=== PATIENT | female | born 1950 | race Caucasian/White ===

== ENCOUNTER → 2018-12-20 | Outpatient (CLI) | payer MEDICARE, OTHER ==
[2018-12-24 15:07] LABS: HPV 16 Negative (Negative); HPV 18 Negative (Negative); HPV OTHER HR TYPES Negative (Negative)
== END | disposition home or self-care (01) ==
LOC: LAB 11:51 → LAB SHORT 11:51
PROVIDERS: Obstetrics & Gynecology
DX: Z01.419 Encounter for gynecological examination (general) (routine) without abnormal findings (principal)
CPT/HCPCS: 87624; G0123

== ENCOUNTER → 2020-11-16 | Outpatient (CLI) | payer MEDICARE, OTHER ==
[2020-11-16 17:27] LABS: Alanine Aminotransfer (ALT/SGP 37 U/L (12-78); Albumin, Blood 3.7 g/dL (3.4-5.0); Albumin/Globulin Ratio 1.1 (0.8-1.8); Alk Phos 66 U/L (50-136); Anion Gap 9 mmol/L (6-16); Aspartate Aminotrans (AST/SGOT 16 U/L (12-37); Bilirubin, Total 0.5 mg/dL (0.1-1.0); Blood Urea Nitrogen 10 mg/dL (8-24); Bun/Creatinine Ratio 12.2 (12.0-20.0); CHOL/HDL RATIO 5.9; CO2, Blood 24 mmol/L (21-32); Calcium, Blood 9.6 mg/dL (8.5-10.1); Chloride, Blood 110 mmol/L (98-108); Cholesterol 248 mg/dL (50-200); Creatinine, Blood 0.82 mg/dL (0.40-1.00); Globulin, Blood 3.3 g/dL (2.2-4.0); Glomerular Filtration Rate >60 (60-); Glucose, Blood 95 mg/dL (70-99); HDL Cholesterol 42 mg/dL (>39); LDL/HDL RATIO 3.9; Low Density Lipoprotein Chol 165 mg/dL (0-110); Phosphorus, Blood 3.3 mg/dL (2.5-4.9); Sodium, Blood 143 mmol/L (136-145); Thyroxine (T4) 8.4 ug/dL (4.8-13.9); Triglycerides 206 mg/dL (30-160); Very Low Density Lipoprot Chol 41 mg/dL (6-32)
== END ==
LOC: LAB SHORT 13:51
PROVIDERS: Internal Medicine Hematology & Oncology
DX: E03.9 Hypothyroidism, unspecified (principal); E55.9 Vitamin D deficiency, unspecified; I10 Essential (primary) hypertension
CPT/HCPCS: 80053; 80061; 82306; 84100; 84436; 84443

== ENCOUNTER → 2022-03-02 | Outpatient (CLI) | payer MEDICARE, OTHER ==
[2022-03-03 15:11] LABS: HPV 16 Negative (Negative); HPV 18 Negative (Negative); HPV OTHER HR TYPES Negative (Negative)
== END | disposition home or self-care (01) ==
LOC: LAB SHORT 12:09
PROVIDERS: Obstetrics & Gynecology
DX: Z01.419 Encounter for gynecological examination (general) (routine) without abnormal findings (principal)
CPT/HCPCS: 87624; G0123

== ENCOUNTER → 2025-06-05 | Outpatient (CLI) | payer MEDICARE, OTHER ==
[2025-06-05 12:52] LABS: Stool Occult Bld Immuno 1 Negative (NEGATIVE)
== END | disposition home or self-care (01) ==
LOC: LAB 08:35 → LAB SHORT 08:35 → EDSTATUS 06-03 16:45 → LAB FUT 06-03 16:45
PROVIDERS: Internal Medicine Gastroenterology
DX: Z12.11 Encounter for screening for malignant neoplasm of colon (principal)
CPT/HCPCS: G0328

== ENCOUNTER 2025-08-12 09:27 | Day surgery (SDC) | payer MEDICARE, OTHER ==
[~2025-08-12] VITALS: Ht 161 cm; Wt 74.8 kg
[2025-08-12] VITALS (14 sets, daily range): BP systolic 83–133; BP diastolic 39–87
[~2025-08-12 09:27] MED LIST: CELE100 PO; COLLAGEN SKIN1 EACH PO; FISH OIL 1,0001 EA10 PO; MAGNESIUM SULF100 MG PO; MELATONIN1 M1 PO; MELO7.5 PO; TURMERIC PO
[2025-08-12] MEDS ORDERED: Ropivacaine 0.5% HCl/Pf 123.125 MG,EPINEPHrine HCL 0.25 MG,Ketorolac Tromethamine 15 MG... INFIL SCH (09:45)
[2025-08-12] MEDS ORDERED: Chlorhexidine Mouth Care 15 ML UDC MT SCH (09:45)
[2025-08-12] MEDS ORDERED: Tranexamic Acid 100 ML IV SCH (09:45)
[2025-08-12] MEDS ORDERED: CeFAZolin Sodium 2,000 MG in NS 100 ML IV SCH ×2 (09:45→20:00)
[2025-08-12] MEDS ORDERED: FentaNYL Citrate 50 MCG/ML 2 ML Injection ONE ×2 (10:47→11:24)
[2025-08-12] MEDS ORDERED: Midazolam HCl 1MG / ML 2ML Vial ONE (10:48)
[2025-08-12] MEDS ORDERED: TURMERIC500 M2 PO (10:54)
[2025-08-12] MEDS ORDERED: ZINC50 M3 PO (10:55)
--- NOTE | 2025-08-12 11:41 | NUR ---
History, Chart, Medications and Allergies reviewed before start of procedure. Pre-Op teaching done. Pt verbalizes understanding. Patient confirms NPO status and agrees with scheduled surgery. Patient reports completing Chlorhexadine shower X2 prior to admission to hospital. Surgical site prepped with 2% Chlorhexidine cloth wipe. Lungs clear T/O to Auscultation. Patient States Post-Procedure ride home has been arranged.
[2025-08-12] MEDS ORDERED: ePHEDrine Sulfate 50 MG/ML 1ML Injection ONE (12:43)
[2025-08-12] MEDS ORDERED: HYDROmorphone HCl/Pf 1MG SYR IV PRN ×3 (12:55→13:45)
[2025-08-12] MEDS ORDERED: FentaNYL Citrate 50 MCG/ML 2 ML Injection IV PRN ×2 (12:55)
[2025-08-12] MEDS ORDERED: Ondansetron HCl 2 MG / ML 2ML Vial IV PRN ×2 (12:55→13:35)
[2025-08-12] MEDS ORDERED: Phenylephrine HCl 100 MCG/ML-NS 10MLSYR (1MG/10ML) ONE (13:01)
[2025-08-12] MEDS ORDERED: Metoclopramide HCl 5MG / ML 2ML Vial IV PRN (13:35)
[2025-08-12] MEDS ORDERED: Ondansetron HCl 2 MG / ML 2ML Vial ONE (13:37)
[2025-08-12] MEDS ORDERED: Magnesium Hydroxide Conc 10 ML UDC PO PRN (13:40)
[2025-08-12] MEDS ORDERED: Prochlorperazine Edisylate 10 mg Vial IV PRN (13:45)
[2025-08-12] MEDS ORDERED: FLU VACC TS2025(65UP)/MF59C/PF 45 MCG/0.5 ML SYRINGE IM SCH (13:50)
--- NOTE | 2025-08-12 14:24 | NUR ---
ARRIVAL TO UNIT PT ARRIVED TO UNIT A/OX4. UNABLE TO WIGGLE OR FEEL TOES AT THIS TIME DUE TO SPINAL. PT DENIES N/V. DENIES LIGHTHEADED/DIZZINESS. CALL LIGHT IN REACH. TOLERATING SIPS OF WATER.
[2025-08-12] MEDS ORDERED: Ketorolac Tromethamine 15mg Vial IV SCH (18:00)
[2025-08-12] MEDS ORDERED: ASPI81CH PO (18:08)
--- NOTE | 2025-08-12 18:41 | NUR ---
DISCHARGE NOTE PT IS A/OX4. TOLERATING PO INTAKE, VOIDING WELL. VSS. BP IS SLIGHTLY SOFT BUT UNCHANGED. PT REMAINS ASYMPTOMATIC. ENCOURAGED PO INTAKE. WALKING SBA W/ FWW. PT VERBALIZES UNDERSTANDING OF DC EDUCATION. PT DENIES N/V. PT APPEARS EXCITED TO GO HOME. AWAITING ARRIVAL OF RIDE.
== END 2025-08-12 19:06 | disposition home or self-care (01) ==
LOC: ORSCMMR 09:27 → ORD 11:00 → ORSCMMR 11:00 → ORD 12:30 → SURS 14:12 → ORSCMMR 19:06 → ORD 08-19 09:15
PROVIDERS: Orthopaedic Surgery
PROC: 0SR90JZ Replacement of Right Hip Joint with Synthetic Substitute, Open Approach (ICD-10-PCS; principal; 2025-08-12 11:00)
DX: M16.11 Unilateral primary osteoarthritis, right hip (principal)
CPT/HCPCS: 72170; A9270; C1776; J0166; J0690; J0735; J1885; J2250; J2371; J2405; J2704; J2795; J3010; J7120

== ENCOUNTER 2025-09-30 09:36 | Day surgery (SDC) | payer MEDICARE, OTHER ==
[2025-09-30] VITALS (12 sets, daily range): BP systolic 80–112; BP diastolic 50–74
[~2025-09-30] VITALS: Ht 162 cm; Wt 71.7 kg
[~2025-09-30 09:36] MED LIST changes: +ASPI81CH PO; +MOBIC15 MG PO; +Percocet 5-3251 EACH PO; +TURMERIC500 M2 PO; +ZINC15 PO; +ZINC50 M3 PO
[2025-09-30] MEDS ORDERED: CeFAZolin Sodium 2,000 MG in NS 100 ML IV SCH ×2 (09:50→21:00)
[2025-09-30] MEDS ORDERED: Ropivacaine 0.5% HCl/Pf 123.125 MG,EPINEPHrine HCL 0.25 MG,Ketorolac Tromethamine 15 MG... INFIL SCH (09:50)
[2025-09-30] MEDS ORDERED: Chlorhexidine Mouth Care 15 ML UDC MT SCH (09:50)
[2025-09-30] MEDS ORDERED: Tranexamic Acid 100 ML IV SCH (09:50)
[2025-09-30] MEDS ORDERED: Prochlorperazine Edisylate 10 mg Vial IV PRN (10:35)
[2025-09-30] MEDS ORDERED: HYDROmorphone HCl/Pf 1MG SYR IV PRN ×2 (10:40→14:50)
[2025-09-30] MEDS ORDERED: Magnesium Hydroxide Conc 10 ML UDC PO PRN (10:45)
[2025-09-30] MEDS ORDERED: Metoclopramide HCl 5MG / ML 2ML Vial IV PRN ×2 (10:45→14:55)
[2025-09-30] MEDS ORDERED: Ondansetron HCl 2 MG / ML 2ML Vial IV PRN ×2 (10:45→14:55)
[2025-09-30] MEDS ORDERED: FLU VACC TS2025(65UP)/MF59C/PF 45 MCG/0.5 ML SYRINGE IM SCH (10:45)
--- NOTE | 2025-09-30 11:00 | NUR ---
Wheelchared into Day Surgery. History, Chart, Medications and Allergies reviewed before start of procedure. Pre-Op teaching done. Pt verbalizes understanding. Patient States Post-Procedure ride home has been arranged.
[2025-09-30] MEDS ORDERED: Magnesium Sulfate 500 MG / ML 2ML Vial ONE (12:17)
[2025-09-30] MEDS ORDERED: Ondansetron HCl 2 MG / ML 2ML Vial ONE (12:19)
[2025-09-30] MEDS ORDERED: Metoclopramide HCl 5MG / ML 2ML Vial ONE (12:19)
[2025-09-30] MEDS ORDERED: Midazolam HCl 1MG / ML 2ML Vial ONE (12:47)
[2025-09-30] MEDS ORDERED: FentaNYL Citrate 50 MCG/ML 2 ML Injection IV PRN ×2 (14:50→14:55)
[2025-09-30] MEDS ORDERED: Morphine Sulfate 4 MG/1 ML Injection IV PRN (14:55)
[2025-09-30] MEDS ORDERED: ePHEDrine Sulfate 50 MG/ML 1ML Injection IV PRN (14:55)
--- NOTE | 2025-09-30 16:57 | NUR ---
POST OP: REPORT RECEIVED FROM [employer], ARRIVED TO UNIT AT 1510. VSS, PT ABLE TO WIGGLE TOES, A/O. REPORT 8 PAIN. SURGICAL SITE WNL. MEDICATED PER EMAR. CALL LIGHT IN REACH
[2025-09-30] MEDS ORDERED: Ketorolac Tromethamine 15mg Vial IV SCH (18:00)
--- NOTE | 2025-09-30 18:18 | NUR ---
BP IS 87/50, PT REPORTS SLIGHT DIZZINESS. OTHERWISE ASYMPTOMATIC. DR WORLEY MADE AWARE.
[2025-10-01 03:32] VITALS: BP 100/53
[2025-10-01 05:32] LABS: BASOPHILS ABSOLUTE AUTO 0.03 K/mm3 (0.00-0.23); BASOPHILS PERCENT AUTO 0 % (0-2); EOSINOPHILS ABSOLUTE AUTO 0.10 K/mm3 (0.00-0.68); EOSINOPHILS PERCENT AUTO 1 % (0-6); Hematocrit 29.4 % (33.0-51.0); Hemoglobin 9.8 g/dL (11.5-16.0); IMMATURE GRAN ABSOLUTE AUTO 0.03 K/mm3 (0.00-0.10); IMMATURE GRAN PERCENT AUTO 0 % (0-1); LYMPHOCYTES ABSOLUTE AUTO 1.08 K/mm3 (0.84-5.20); LYMPHOCYTES PERCENT AUTO 13 % (21-46); MONOCYTES ABSOLUTE AUTO 0.54 K/mm3 (0.16-1.47); MONOCYTES PERCENT AUTO 6 % (4-13); Mean Corpuscular HGB Conc 33.3 g/dL (31.5-36.5); Mean Corpuscular Volume 92 fL (80-100); NEUTROPHILS ABSOLUTE AUTO 6.71 K/mm3 (1.96-9.15); NEUTROPHILS PERCENT AUTO 79 % (41-73); NRBC ABSOLUTE 0.00 K/mm3 (0.00-0.02); NRBC Auto 0.0 /100 WBC (0.0-0.2); Platelet Count 148 K/mm3 (150-400); RDW Coefficient Variation 12.8 % (11.7-14.2); RDW Standard Deviation 42.8 fL (35.1-46.3)
[2025-10-01 06:15] LABS: Anion Gap 6.0 mmol/L (3-11); Blood Urea Nitrogen 12.0 mg/dL (8-24); CO2, Blood 25.0 mmol/L (21-32); Calcium, Blood 8.5 mg/dL (8.5-10.1); Chloride, Blood 108.0 mmol/L (98-108); Creatinine, Blood 0.9 mg/dL (0.40-1.00); Glucose, Blood 122.0 mg/dL (70-99); Potassium, Blood 3.9 mmol/L (3.5-5.5); Sodium, Blood 135.0 mmol/L (136-145)
--- NOTE | 2025-10-01 06:15 | NUR ---
SHIFT SUMMARY POD 1 L TKA. DRESSING TO L KNEE C/D/I. PAIN MANAGED WELL PER EMAR. VSS. PT TOLERATING PO INTAKE. PT AMBULATING W/ 1 PERSON AND FWW TO BATHROOM. POLAR PACK IN PLACE. CALL LIGHT WITHIN REACH.
--- NOTE | 2025-10-01 06:22 | NUR ---
SHIFT SUMMARY POD 1 L TOTAL HIP ARTHROPLASTY. TELFA DRESSING TO L HIP C/D/I. PAIN MANAGED WELL PER EMAR. PT TOLERATING PO INTAKE. 1 PERSON ASSIST W/ FWW TO BEDSIDE COMMODE. POLAR PACK IN PLACE. CALL LIGHT WITHIN REACH.
[2025-10-01 07:20] VITALS: BP 86/44
[2025-10-01 08:17] VITALS: BP 109/56
[2025-10-01] MEDS ORDERED: ASPI81CH PO (09:03)
[2025-10-01 11:18] VITALS: BP 108/55
--- NOTE | 2025-10-01 11:51 | NUR ---
Sarita is awake in a recliner dressed anticipating discharge when she wlcomes my visit. Pt. is pleasant. Facilitated a life review and considered matters of guillermina and belief. Pt. shared about her guillermina and that she attends [facility]. in [place]. Listened with interest and empathy. Pt. displayed evidence of trust and welcomed prayer. Prayed with Pt. Pt. verbalized gratitude fo rthe spiritual care visit.
--- NOTE | 2025-10-01 11:56 | NUR ---
DISCHARGE: PACKET PRINTED AND PT EDUCATED. IV DC'D BY YING CAVAZOS. PT LEFT UNII AT ABOUT 1130 VIA WHEELCHAIR WITH MACY
== END 2025-10-01 11:55 | disposition home or self-care (01) ==
LOC: ORSCMMR 09:36 → ORD 11:00 → ORSCMMR 11:00 → ORD 11:15 → SURS 15:17 → ORSCMMR 10-01 11:55
PROVIDERS: Orthopaedic Surgery
PROC: 0SRB0J9 Replacement of Left Hip Joint with Synthetic Substitute, Cemented, Open Approach (ICD-10-PCS; principal; 2025-09-30 12:30)
DX: M16.12 Unilateral primary osteoarthritis, left hip (principal)
CPT/HCPCS: 36415; 72170; 80048; 85025; 97110; 97162; 97530; A9270; C1713; C1776; J0166; J0690; J0735; J1171; J1885; J2250; J2405; J2704; J2765; J2795; J3475; J7120